=== PATIENT | female | born 1965 | race Caucasian/White ===

== ENCOUNTER 2023-09-08 10:08 | Outpatient (CLI) | payer OTHER, SELFPAY ==
[2023-09-08 11:34] LABS: Basophils Percent Auto 0.5 % (0.2-1.2); Eosinophils Absolute Auto 0.1 K/mm3 (0-0.3); Eosinophils Percent Auto 2.2 % (0-4.4); Hematocrit 41.6 % (37.0-47.0); Hemoglobin 13.8 g/dL (12.0-15.0); Immature Granulocyte Absolute 0.02 K/mm3 (0.00-0.031); Immature Granulocyte Percent A 0.4 % (0-0.5); Lymphocytes Absolute Auto 1.85 K/mm3 (0.9-3.2); Lymphocytes Percent Auto 33.4 % (18.3-44.2); Mean Corpuscular HGB Conc 33.2 g/dl (32-36); Mean Corpuscular Volume 93.5 fl (80-100); Mean Platelet Volume 11.2 fl (7.4-10.4); Monocytes Absolute Auto 0.4 K/mm3 (0.1-0.6); Monocytes Percent Auto 7.6 % (2.6-8.5); Neutrophils Absolute Auto 3.1 K/mm3 (1.3-6.7); Neutrophils Percent Auto 55.9 % (45.5-73.1); Platelet Count Result 168 k/mm3 (150-375); Red Blood Count 4.45 M/mm3 (4.2-5.4); Red Cell Distribution Width 11.9 % (11.5-14.5); White Blood Count 5.5 K/mm3 (4.5-10.0)
[2023-09-08 11:46] LABS: Alanine Aminotransferase 18 U/L (6-35); Albumin Level 4.4 g/dL (3.5-5.1); Alkaline Phosphatase 66 U/L (38-126); Anion Gap 4 mmol/L (8-16); Aspartate Amino Transferase 31 U/L (14-36); Bilirubin,Total 1.3 mg/dL (0.2-1.3); Blood Urea Nitrogen 20 mg/dL (7-17); Calcium 9.8 mg/dL (8.4-10.2); Carbon Dioxide 32 mmol/L (22-30); Chloride 102 mmol/L (98-107); Estimated Glomerular Filt Rate > 60; Glucose 93 mg/dL (65-110); Potassium 3.5 mmol/L (3.4-5.0); Sodium 138 mmol/L (137-145)
[2023-09-08 11:47] LABS: INR 0.9; Prothrombin Time 12.7 Seconds (11.1-14.7)
[2023-09-08 11:48] LABS: Partial Thromboplastin Time 26.9 Seconds (22.3-36.8)
== END 2023-09-08 10:09 | disposition home or self-care (01) ==
LOC: ANHSURGERY 10:14
PROVIDERS: PCP Family Medicine; Visit Provider Urology
DX: Z01.818 Encounter for other preprocedural examination (principal); N81.10 Cystocele, unspecified
CPT/HCPCS: 36415; 80053; 85025; 85610; 85730; 86850; 86900; 86901

== ENCOUNTER 2023-09-19 00:12 | Day surgery (SDC) | payer OTHER, SELFPAY ==
--- NOTE | 2023-09-08 10:52 | PC.NURSE ---
Report to the Outpatient Waiting Room, entrance under the green pavilion located off [facility], at time _0600 on date __09/19/23 . Planned Procedure Time: __07 . Time changes happen often and if your time is changed the preop area will call you the afternoon before. - You and your visitor will be asked to self-screen and do not enter if you have any COVID symptoms. - A mask is optional within the hospital at this time. Patients may have clear liquids (water, carbonated beverages, clear teas, apple juice) until 3 hours prior to surgery( 4:30 AM) with a maximum of 20 ounces. - No food from midnight until time of surgery - Infants may have breast milk until 4 hours before surgery, formula 6 hours prior to surgery. - Children will be allowed to drink immediately following surgery. If applicable, please bring a bottle or sippy cup to assist with drinking. Juice, water, soda, and popsicles are readily available. For infants on formula, please bring formula the day of surgery. Pacifiers are allowed. Take the following medications with a SIP of water the morning of surgery: ___FLUOXETINE DO NOT STOP ANY OF YOUR OTHER PRESCRIPTION MEDICATIONS PRIOR TO SURGERY ?EXCEPT THE FOLLOWING Medications to discontinue per physician ___HOLD_ALL VITAMINS AND SUPPLEMENT 3 DAYS PRE OP.LAST DOSE 09/15/23 Please no make-up, nail kazakh, hairspray, perfume, deodorant, or body powder the day of surgery. No jewelry (including any body piercings) or valuables the day of surgery, leave them at home. Please take a shower or bath the night before, or the morning of, surgery with an antibacterial soap. Wear comfortable, loose fitting clothing. Children are encouraged to wear pajamas. - Jewelry must be removed prior to entering the operating room. Rings and piercings that are not removed may be cut off. - The hospital will not accept responsibility for valuables. - Please leave all valuables, including medications, at home the day of surgery. If you are going home after surgery, a licensed otr company truck driver must drive you home. - NO public transportation without another adult if you receive anesthesia. - We recommend that an adult stay with you for 24 hours following discharge. - We also recommend that you do not drive, make important decision, drink alcoholic beverages, or take any drugs that were not prescribed by your health care provider for at least 24 hours after your discharge time. For Pediatric surgeries, we recommend two adults accompany the child home. Follow any additional instructions given to you from your surgeon. If you or anyone in your household have experienced Covid symptoms in the past week, please notify your surgeon or the nurse liaison at the phone number below for possible testing. VERBAL AND WRITTEN instructions given to __PATIENT and asked if any additional questions and then verbalized understanding. Patient advised to call surgeon office or pre surgery nurse liaison [phone] if any additional questions.
[2023-09-08 11:20] VITALS: BP 157/88; PULSE 58; RESP 18; TEMP 36.8; O2SAT 100; BMI 27.9
--- NOTE | 2023-09-16 15:58 | P.HP_ITS ---
H&P: HPI History of Present Illness Date/Time: 09/16/23 15:58 Chief Complaint: POP/SARAH Narrative: 58 yo with uterine prolapse and SARAH Review of Systems Review of Systems: All systems reviewed & are unremarkable except as noted in HPI and below [facility] Social History Social History Years smoked: 4 Smoking status: Former smoker Tobacco type: cigarettes Smoking end date: 06/27/95 Alcohol intake: current Alcohol use details: ONE DRINK EVERY 2 WKS Substance use: current Last use: 2 WKS AGO Living arrangements: with family Spiritual care concerns: No Meds Home Medications and Allergies Home Medications Medication Instructions Recorded Confirmed Type Lactobacillus 1 cap PO DAILY 09/08/23 09/08/23 History acidophilus-Bifidobac.animalis 2.5 billion cell capsule (Daily Probiotic) celecoxib 200 mg capsule 200 mg PO BID 09/08/23 09/08/23 History cholecalciferol (vitamin D3) 50 50 mcg PO DAILY 09/08/23 09/08/23 History mcg (2,000 unit) tablet cyanocobalamin (vitamin B-12) 5,000 mcg PO DAILY 09/08/23 09/08/23 History 5,000 mcg capsule esomeprazole magnesium 40 mg 40 mg PO DAILY 09/08/23 09/08/23 History capsule,delayed release fluoxetine 20 mg capsule 20 mg PO DAILY 09/08/23 09/08/23 History glucosamine sulf dipot 1 cap PO DAILY 09/08/23 09/08/23 History chlr,msm,chond 550 mg-C 30 mg-nickolas 1 mg capsule (Glucosamine Chondroitin) hydrochlorothiazide 12.5 mg capsule 25 mg PO DAILY 09/08/23 09/08/23 History losartan 100 mg tablet 100 mg PO DAILY 09/08/23 09/08/23 History magnesium 30 mg tablet 30 mg PO DAILY 09/08/23 09/08/23 History olopatadine 0.6 % nasal spray 2 spray intranasal BID 09/08/23 09/08/23 History Allergies Allergy/AdvReac Type Severity Reaction Status Date / Time Penicillins Allergy Mild Hives Unverified 09/08/23 10:20 Exam Narrative: NAD A+O x3 aterior wall +1 Brandon at 0 Assessment and Plan Assessment and plan (1) Uterine prolapse: Code(s): N81.4 - Uterovaginal prolapse, unspecified Status: Acute (2) ASRAH (stress urinary incontinence, female): Code(s): N39.3 - Stress incontinence (female) (male) Status: Acute Plan Robotic Sacral colpopexy and sling. Risks, benifits, alternative outlined in office chart
[2023-09-19] VITALS (18 sets, daily range): BP systolic 96–154; BP diastolic 49–98; PULSE 57–86; RESP 10–16; TEMP 36.1–36.6; O2SAT 92–100
--- NOTE | 2023-09-19 04:34 | WPDHPUPDATE1 ---
History and Physical Update Update Date/Time: 09/19/23 04:34 History and Physical has been reviewed, including an updated exam of the patient. There are NO changes in the patient's condition. Risks, benefits, and alternatives have been discussed and questions answered. Patient agrees to proceed with procedure.
[2023-09-19] MEDS: ACETAMINOPHEN 500 MG TABLET 1000 MG PO (06:29)
[2023-09-19] MEDS: KETOROLAC 15 MG/ML VIAL (*BKC) IV PUSH (06:59)
[2023-09-19] MEDS: LACTATED RINGERS 1,000 ML 30 ML IV CONT ×2 (06:59→10:25)
--- NOTE | 2023-09-19 07:13 | WPDANESEPPF ---
Anes - Initial Pre Proc Eval Procedure: Operation Date: 09/19/23 07:30 Proposed Procedures p Robotic Sacrocolpopexy, Possible Urethral Sling - Michael Sylvester MD s Robotic Assisted Laparoscopic Supracervical Hysterectomy with Bilateral Salpingo-oophorectomy - Dillon Wilkerson MD Date/Time: 09/19/23 07:13 Surgeon: Michael Sylvester MD Pre Op Diagnosis: cystocele, incomp utero vag prolapse,stress incont Patient Data Age: 58 Gender: F Height: 1.61 m Weight: 72.9 kg Last Vital Signs Temp 98 F 09/19/23 06:35 Pulse 57 L 09/19/23 06:35 Resp 16 09/19/23 06:35 BP 125/82 09/19/23 06:35 Pulse Ox 100 09/19/23 06:35 O2 Del Method Room Air 09/19/23 06:35 Allergies Allergy/AdvReac Type Severity Reaction Status Date / Time Penicillins Allergy Mild Hives Verified 09/19/23 06:00 Home Medications Medication Instructions Recorded Confirmed Type Lactobacillus 1 cap PO DAILY 09/08/23 09/19/23 History acidophilus-Bifidobac.animalis 2.5 billion cell capsule (Daily Probiotic) celecoxib 200 mg capsule 200 mg PO BID 09/08/23 09/19/23 History cholecalciferol (vitamin D3) 50 50 mcg PO DAILY 09/08/23 09/19/23 History mcg (2,000 unit) tablet cyanocobalamin (vitamin B-12) 5,000 mcg PO DAILY 09/08/23 09/19/23 History 5,000 mcg capsule esomeprazole magnesium 40 mg 40 mg PO DAILY 09/08/23 09/19/23 History capsule,delayed release fluoxetine 20 mg capsule 20 mg PO DAILY 09/08/23 09/19/23 History glucosamine sulf dipot 1 cap PO DAILY 09/08/23 09/19/23 History chlr,msm,chond 550 mg-C 30 mg-nickolas 1 mg capsule (Glucosamine Chondroitin) hydrochlorothiazide 12.5 mg capsule 25 mg PO DAILY 09/08/23 09/19/23 History losartan 100 mg tablet 100 mg PO DAILY 09/08/23 09/19/23 History magnesium 30 mg tablet 30 mg PO DAILY 09/08/23 09/19/23 History olopatadine 0.6 % nasal spray 2 spray intranasal BID 09/08/23 09/19/23 History Patient hx anesthesia problems: none Family hx anesthesia problems: none Results Review: All pre-operative results and documents have been reviewed as part of the pre-operative evaluation. [facility] Social History Social History Years smoked: 4 Smoking status: Former smoker Tobacco type: cigarettes Smoking end date: 06/27/95 Alcohol intake: current Alcohol use details: ONE DRINK EVERY 2 WKS Substance use: current Last use: 2 WKS AGO Living arrangements: with family Spiritual care concerns: No Anes - Eval Final PreProcedure Day of Procedure 09/19/23 07:13 Patient weight: normal Heart: regular rate and rhythm Lungs: clear to auscultation Airway: Mallampati scale class III Neurological: alert and oriented Last oral intake: >/= 8 hours ASA classification: III Emergent: no Anesthetic plan: proceed Anesthesia type and monitoring: general ETT and standard monitoring Results Review: All pre-operative results and documents have been reviewed as part of the pre-operative evaluation. Informed Consent: The patient's anesthetic plan and its attendant risks and benefits were discussed with the patient/family/POA. Questions were solicited and answers provided to the satisfaction of the patient/family/POA.
--- NOTE | 2023-09-19 07:14 | WPDHPUPDATE1 ---
History and Physical Update Update Date/Time: 09/19/23 07:14 History and Physical has been reviewed, including an updated exam of the patient. There are NO changes in the patient's condition. Risks, benefits, and alternatives have been discussed and questions answered. Patient agrees to proceed with procedure.
[2023-09-19] MEDS: ceFAZolin 2 GM/D5W 50 ML 2 GM/50 ML BAG IVPB (07:30)
[2023-09-19] MEDS: metroNIDAZOLE 500 MG/ISO 100ML 500 MG/100 ML BAG 100 MG IVPB (07:48)
[2023-09-19] MEDS: BUPIVACAINE/EPINEPHRINE 0.5% 30 ML VIAL 40 ML INFILTRATE (07:54)
--- NOTE | 2023-09-19 08:26 | SUR.OPER ---
ports placed by Dr Sylvester/ start 0754 end 0802.
--- NOTE | 2023-09-19 08:39 | W.PM.PROC2 ---
Procedure Note - Detailed Date of Procedure 09/19/23 Pre-op Diagnosis cystocele, incomp utero vag prolapse,stress incont Post-op Diagnosis Same Procedure Performed Robotic assisted supracervical hysterectomy with bilateral salpingo-oophorectomy Surgeon Dillon Wilkerson MD Anesthesia General Indications pelvic organ prolapse Findings normal-appearing uterus, ovaries, and left tube, right tube was partially resected. Some scarring over the posterior cul-de-sac peritoneum. Description of Procedure This patient was taken to the operating room. She was prepped and draped in the dorsal lithotomy position after induction of general anesthesia. the robot trocars and docking was performed by Dr. Sylvester. a tenaculum was applied to the vaginal mucosa at the cervicovaginal juncture posteriorly. This was done with a speculum and tenaculum. The speculum was placed. The cervix was grasped with a tenaculum. Trocars were placed by Dr. Sylvester. The location of the ureters was identified at the pelvic brim. The ovaries were grasped and raised. The infundibulopelvic ligaments were cauterized and transected with LigaSure cautery. This was all done in a bilateral fashion. The para ovarian tissue was cauterized and transected with LigaSure cautery bilaterally. Moving around the ovary into the broad ligament the tissue was cauterized transected with The vessel sealer cautery. The round ligaments were cauterized transected with the vessel sealer cautery this was all done in a bilateral fashion. In a stepwise fashion along the lateral aspects of the uterus the round ligament and broad ligaments were cauterized transected down to the level of the uterine arteries. The cervix was transected using unipolar cautery. the uterus was bifurcated down to the level the cervix. The uterus and bilateral tubes and ovaries were laid off to the side for Dr. Sylvester to remove later. The remainder of the procedure was performed by Dr. Sylvester, again he finished the surgery. Estimated Blood Loss 10 Urine Output 800 Drains Yes Packing No Pathology Yes Complications No immediate complications Condition Stable Disposition Floor
--- NOTE | 2023-09-19 09:02 | SUR.OPER ---
PATIENT MAINTAINS POSITIONING.
--- NOTE | 2023-09-19 10:13 | W.PM.PROC2 ---
Procedure Note - Detailed Date of Procedure 09/19/23 Pre-op Diagnosis cystocele, incomp utero vag prolapse,stress incont Post-op Diagnosis Same Procedure Performed Robotic assisted laparoscopic sacral colpopexy Urethral sling Cystoscopy Surgeon Michael Sylvester MD Anesthesia General Indications This is a woman with uterine prolapse as well as stress incontinence. She desires surgical correction. She is here for the above. She understands risks of bleeding, infection, diskitis, damage to surrounding organs, bowel injury, bowel obstruction, mesh related complications including exposure and extrusion, postoperative voiding dysfunction including incontinence and retention, need for ancillary procedures, dyspareunia, recurrence of prolapse, and other perioperative intraoperative postoperative complications. She agrees to proceed. Findings See below Description of Procedure She was correctly identified. Informed consent obtained. She from the operating room. She was given general anesthesia. She was given appropriate perioperative antibiotics. She was placed a low lithotomy position. Pressure points were padded. A time-out performed. I marked out the skin 3 fingerbreadths cephalad to the umbilicus. I anesthetized the skin. I incised the skin. I dissected down to the fascia. I grasped the fascia with Wicho clamps. I entered the fascia sharply in a Dacosta type technique. I placed sutures for later fascial closure. I placed a midline trocar. I examined the abdomen. There is no sign of any injury. Under direct vision I placed 2 additional trocars in the right upper quadrant and 2 additional trocars the left upper quadrant. She was placed in steep Trendelenburg. The robot was docked. Her mortgage loan assistant completed their portion of the procedure. Please see that operative report for details. The specimen is left in a bag which I extracted into the case. I then sat at the console. I took down some peritoneal attachments to the sidewall from the left colon. I did this sharply through only see through tissue. No cautery was used. This allowed the colon to get out of the pelvis. The Sizer in the vagina created plane on the anterior and posterior vaginal wall. I took great care not to injure the vagina, bladder, or rectum. I introduced the mesh into the abdomen. I sewed the anterior leaflet of mesh on the anterior vaginal wall. I used several sutures of 2-0 Transfer-Haider. I sewed the posterior leaflet of mesh on the posterior vaginal wall. This was done with several sutures of 2 0 Transfer-Haider. I reflected the colon laterally. I opened the posterior peritoneum over the sacral promontory. I carried this into the cul-de-sac. I freed up the edges for later retroperitonealization. I located the anterior longitudinal ligament the sacrum. I cleaned off all fatty tissues. I then tensioned my mesh appropriately. I did a vaginal exam the bedside. I assured prolapse reduction without undue tension. She had very thin posterior vaginal wall. Three of most distal sutures were through and through. I removed these distal sutures. I did not replace due to the thinness of the vaginal tissues. I instead placed additional sutures into the cervix. I then sewed the proximal leaflet of mesh onto the anterior longitudinal ligament of the sacrum with 4 sutures of 2 0 Transfer-Haider. I then used a 2 0 Monocryl to completely and meticulously retroperitonealized all mesh. I allowed the colon to go back to its normal anatomic location. There is no sign of any impingement. The specimen was then removed. All ports removed. Fascia was tied down. Skin was closed with Monocryl and surgical glue. She was repositioned and prepped for urethral sling. She had a small degree of rectocele. I elected to not repair it. It was only a distal rectocele. She also had very thin vaginal mucosa. There was no cystocele. There was excellent apical support. I marked out the inner thig
[2023-09-19] MEDS: fentaNYL CITRATE INJ (*CRX) 100 MCG/2 ML VIAL 25 MCG IV PUSH ×2 (11:23→11:26)
[2023-09-19] MEDS: oxyCODONE HCL (*CRX) 5 MG TAB IR PO (12:41)
[2023-09-19] MEDS: IBUPROFEN 400 MG TABLET PO (15:47)
== END 2023-09-19 15:55 | disposition home or self-care (01) ==
PROVIDERS: Obstetrics & Gynecology; PCP Family Medicine; Visit Provider Urology
PROC: (CPT 57425; principal; 2023-09-19 07:30)
PROC: 0UT94ZZ Resection of Uterus, Percutaneous Endoscopic Approach (ICD-10-PCS; CPT 57425; 2023-09-19 07:30)
DX: N81.2 Incomplete uterovaginal prolapse (principal); N39.3 Stress incontinence (female) (male); I10 Essential (primary) hypertension; F41.9 Anxiety disorder, unspecified; F32.A Depression, unspecified; K58.9 Irritable bowel syndrome, unspecified; Z98.890 Other specified postprocedural states; Z90.13 Acquired absence of bilateral breasts and nipples; Z87.891 Personal history of nicotine dependence; Z85.3 Personal history of malignant neoplasm of breast
CPT/HCPCS: 58542; 57425; 57288; S2900 ×2; 36415; 80053; 85025; 85610; 85730; 86850; 86900; 86901; 88307; A9270; C1771; C1781; J0690; J1100; J1170; J1200; J1596; J1836; J1885; J2250; J2405; J2704; J3010; J7030; J7120; Q9968

== ENCOUNTER 2023-09-22 10:18 | Outpatient (CLI) | payer OTHER, SELFPAY ==
--- NOTE | ~2023-09-22 | DEXA_ITS ---
Bone Density Report Name: KATIE FUENTES Age: 58 Sex: Female Ethnicity: White Date of : 1965 Indication: postmenopausal; screening for osteoporosis; parental hip fracture; prior fracture; hysterectomy; Referring Provider: Dillon Wilkerson Study: Bone densitometry was performed. Exam Date: September 22, 2023 Accession number: [id number] Bone Density: Region BMD T-score Z-score Classification AP Spine (L1, L2) 0.639 -3.1 -1.8 Osteoporosis Femoral Neck (Left) 0.568 -2.5 -1.3 Osteoporosis Total Hip (Left) 0.741 -1.6 -0.7 Osteopenia Femoral Neck (Right) 0.544 -2.7 -1.5 Osteoporosis Total Hip (Right) 0.711 -1.9 -1.0 Osteopenia Total Hip Mean 0.726 -1.8 -0.9 Osteopenia World Health Organization criteria for BMD impression classify patients as: Normal (T-score at or above -1.0), Osteopenia (T-score between -1.0 and -2.5), or Osteoporosis (T-score at or below -2.5). 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 The patient has risk factors, including: parental hip fracture, previous fracture. Discussion: HIGH RISK OF FRACTURE. BONE DENSITY IS UNDESIRABLY LOW AT ONE OR MORE SKELETAL SITES, CONSISTENT WITH POSTMENOPAUSAL OSTEOPOROSIS. This patient's lowest T-score, in a patient who has previously fractured, meets the World Health Organization's (WHO) criteria for severe osteoporosis. In untreated patients, the risk of osteoporotic fracture increases approximately two-fold for each 1.0 SD decrease in T-score. Low bone density is not the only risk factor for fracture; also consider factors such as patient's age, frailty or poor health, risk of falling, risk of injury, previous osteoporotic fracture, family history of osteoporosis, cigarette smoking, low body weight, etc. Not everyone with low bone mineral density has osteoporosis; osteomalacia and other metabolic bone disorders should also be considered. Patients who have osteoporosis should be evaluated for specific diseases and conditions (secondary causes) that may cause or contribute to bone loss. The [place] [employer]ocrinologists (AACE) and National Osteoporosis Foundation (NOF) recommend pharmacologic inter
== END 2023-09-22 10:19 ==
LOC: MICIMG 10:20
PROVIDERS: PCP Obstetrics & Gynecology; Visit Provider Obstetrics & Gynecology
DX: Z78.0 Asymptomatic menopausal state (principal); M85.89 Other specified disorders of bone density and structure, multiple sites; M81.0 Age-related osteoporosis without current pathological fracture
CPT/HCPCS: 77080

== ENCOUNTER 2023-12-12 15:39 | Outpatient (CLI) | payer OTHER, SELFPAY ==
--- NOTE | ~2023-12-12 | MR_ITS ---
EXAMINATION: MR lumbar spine wo con DATE: 12/12/2023 16:12 INDICATION: Spinal stenosis of lumbar region. Low back pain. TECHNIQUE: Magnetic resonance imaging (MRI) of the lumbar spine was performed without intravenous con trast. COMPARISON: None FINDINGS: There is 2 mm retrolisthesis of L2 on L3. There are changes of posterior fusion procedure a t L3-L4 with pedicle screws. There are changes of anterior fusion procedures at L3-L4 and L5-S1 with interbody devices. There is mildly decreased disc height at L2-L3. There is severely decreased disc h eight at L4-L5. The distal spinal cord signal intensity is normal. The conus medullaris is at T12. Th ere are cysts in the kidneys measuring up to 2.7 cm on the left. The following disc levels are specif ically discussed: L1-L2: There is a central protrusion. There is mild bilateral facet joint osteoarthritis. There is no neural foraminal stenosis. There is mild central canal stenosis. L2-L3: The disc is bulging and has an annular fissure. There is mild bilateral facet joint hypertroph y. There is mild bilateral neural foraminal stenosis. There is mild central canal stenosis. L3-L4: There is severe bilateral facet joint hypertrophy. There is moderate bilateral neural foramina l stenosis. There is mild central canal stenosis. There is posterior decompression. L4-L5: The disc does not extend beyond the endplate margin. There is ankylosis of right facet joints with mild hypertrophy. There is mild right neural foraminal stenosis. There is no central canal steno sis. There is posterior decompression. L5-S1: There is no facet joint hypertrophy. There is no neural foraminal stenosis. There is no centra l canal stenosis. There is posterior decompression. IMPRESSION: 1. Moderate lumbar spondylosis. 2. Posterior fusion at L3-L4 and L4-L5 and anterior fusion at L3-L4 and L5-S1. Reviewed, dictated and finalized at location E.
== END 2023-12-12 15:40 ==
PROVIDERS: PCP Orthopaedic Surgery; Visit Provider Family Medicine
DX: M48.062 Spinal stenosis, lumbar region with neurogenic claudication (principal); M47.816 Spondylosis without myelopathy or radiculopathy, lumbar region; Z98.1 Arthrodesis status
CPT/HCPCS: 72148